=== PATIENT | female | born 1950 | race Two or more races ===

== ENCOUNTER 2024-06-11 16:32 | Inpatient (IN) | payer OTHER ==
[~2024-06-11] VITALS: Ht 152.4 cm; Wt 72.6 kg
--- NOTE | 2024-06-11 16:45 | NUR ---
PTE ALERTA Y POCO COOPERADO AL HABLAR EN COMPANIA DE FAMILIAR QUIEN REFIERE TRAER A PTE YA QUE LA MISMA LLEVA 4 STEVENS SIN COMER Y ESTA REFEIRE PTE VERBALIZAR DOLOR DE PECHO EN EL CARMEN DE HOY. DXT EN 89 Y SE REALIZA EKG. PTE DE GRACIE CARDENAS
[2024-06-11] MEDS ORDERED: LANTUS SOL100 UNIT/1 SUBCUTANEO (16:47)
[2024-06-11] MEDS ORDERED: HUMALOG100 UNIT/2 SUBCUTANEO (16:47)
[2024-06-11] MEDS ORDERED: CARDURA1 MG PO (16:47)
[2024-06-11] MEDS ORDERED: LIPITOR40 M1 PO (16:48)
[2024-06-11] MEDS ORDERED: 0.9 % SODIUM CHLORIDE 500 ML IV ONE (19:30)
--- NOTE | 2024-06-11 20:32 | NUR ---
SE EDUCA A PTE Y FAMILIAR SOBRE TX MEDICO. SE MATT MUESTRAS DE LABORATORIO UTILIZANDO MEDIDAS ASEPTICAS. SE COLOCA H/L ERIC DE EDEMA. SE COLOCA IV FLUIDS GUILLERMO ORDEN MEDICA.
[2024-06-11 20:36] LABS: HEMATOCRIT 44.1 % (36.0-45.00); HEMOGLOBIN 14.2 g/dL (12.0-15.00); MEAN CELL VOLUME 88.4 fL (80.00-100.00); MEAN CORPUSCULAR HEMOGLOBIN 28.4 pg (27.00-32.0); MEAN CORPUSCULAR HGB CONC 32.1 g/dl (32.0-36.0); PLATELET COUNT 322 K/uL (150-450); RED BLOOD COUNT 4.99 M/uL (4.00-6.00); RED CELL DISTRIBUTION WIDTH 13.3 % (11.5-14.5)
[2024-06-11 21:24] LABS: ALBUMIN 3.5 gm/dL (3.4-5.0); BILIRUBIN TOTAL 0.6 mg/dL (0.3-1.2); CALCIUM 10.1 mg/dL (8.5-10.1); CREATININE SERUM 2.6 mg/dL (0.55-1.02); GFR 18.09; GLOBULINA 5.8 G/DL (2.4-3.5); POTASSIUM 4.61 mEq/L (3.5-5.1); TOTAL PROTEIN 9.3 gm/dL (6.4-8.2)
--- NOTE | 2024-06-11 22:32 | NUR ---
SE CATETERIZA A PTE UTILIZANDO MEDIDAS ASEPTICAS Y ESTERILES. SE DESTINEE MUESTRA DE UA Y UC. SE NOTIFICA ESTUDIO DE RX PENDIENTE.
[2024-06-11] MEDS ORDERED: DOXAZOSIN MESYLATE 2 MG TABLET PO SCH (22:59)
[2024-06-11] MEDS ORDERED: INSULIN LISPRO 1,000 UNIT/10 ML UNITS SUBCUTANEO PRN (23:00)
[2024-06-11] MEDS ORDERED: DEXTROSE 50 % IN WATER 0.5 G/ML DISP.SYRIN IV PRN (23:00)
[2024-06-11] MEDS ORDERED: ONDANSETRON HCL 4 MG in 0.9 % SODIUM CHLORIDE 50 ML IV PRN (23:00)
[2024-06-11] MEDS ORDERED: 0.9 % SODIUM CHLORIDE 1,000 ML IV SCH (23:00)
[2024-06-11] MEDS ORDERED: hydrALAZINE HCL 20 MG VIAL IV PRN (23:00)
[2024-06-11 23:47] LABS: URINE APPEARANCE Turbid; URINE BILIRRUBIN Negative (NEGATIVE); URINE BLOOD Large; URINE COLOR Yellow; URINE GLUCOSE Negative (NEGATIVE); URINE KETONE Trace (NEGATIVE); URINE LEUKOCYTE Large; URINE NITRATE Negative
[2024-06-11 23:51] LABS: URINE EPITHELIAL CELLS 95.2 uL (0.0-38.8)
[2024-06-12 00:39] LABS: URINE BACTERIA > 9821.5 uL (0.0-1933); URINE CAST > 21.83 uL (0.0-1.40); URINE PROTEIN 300 (NEGATIVE); URINE WBC > 5548.3 uL (0.0-23.2)
[2024-06-12 01:48] LABS: INR 1.06; PROTHROMBIN TIME 11.5 SECONDS (9.0-11.5)
[2024-06-12 03:30] VITALS: BP 165/80
[2024-06-12] MEDS ORDERED: FAMOTIDINE/PF 20 MG in 0.9 % SODIUM CHLORIDE 8 ML IV PUSH SCH (09:00)
[2024-06-12] MEDS ORDERED: ATORVASTATIN CALCIUM 40 MG TABLET PO SCH (09:00)
[2024-06-12 10:54] VITALS: BP 149/76; O2SAT 99
[2024-06-12 16:58] VITALS: BP 160/93
[2024-06-12] MEDS ORDERED: CEFTRIAXONE SODIUM 2,000 MG in DEXTROSE 5 % IN WATER 100 ML IV SCH (18:14)
[2024-06-12] MEDS ORDERED: VITAMIN B COMPLEX/LYSINE 15 ML BLIST.PACK PO SCH (18:16)
[2024-06-13 02:58] VITALS: BP 153/90; O2SAT 95
[2024-06-13 06:49] LABS: HEMATOCRIT 40.2 % (36.0-45.00); HEMOGLOBIN 13.5 g/dL (12.0-15.00); MEAN CELL VOLUME 86.4 fL (80.00-100.00); MEAN CORPUSCULAR HEMOGLOBIN 28.9 pg (27.00-32.0); MEAN CORPUSCULAR HGB CONC 33.5 g/dl (32.0-36.0); PLATELET COUNT 288 K/uL (150-450); RED BLOOD COUNT 4.66 M/uL (4.00-6.00); RED CELL DISTRIBUTION WIDTH 13.5 % (11.5-14.5)
[2024-06-13 08:00] VITALS: BP 137/80
[2024-06-13 08:06] LABS: ALBUMIN 3.2 gm/dL (3.4-5.0); BILIRUBIN TOTAL 0.38 mg/dL (0.3-1.2); CALCIUM 9.5 mg/dL (8.5-10.1); CREATININE SERUM 2.21 mg/dL (0.55-1.02); GFR 21.83; GLOBULINA 4.4 G/DL (2.4-3.5); POTASSIUM 4.18 mEq/L (3.5-5.1); TOTAL PROTEIN 7.6 gm/dL (6.4-8.2)
[2024-06-13 16:50] VITALS: BP 150/75
[2024-06-13] MEDS ORDERED: FLUCONAZOLE 200 MG TABLET PO SCH (17:00)
[2024-06-14 02:00] VITALS: BP 146/86; O2SAT 97
[2024-06-14 08:00] VITALS: BP 160/94; O2SAT 95
[2024-06-14 17:16] VITALS: BP 163/85
[2024-06-15 01:35] VITALS: BP 160/85; O2SAT 97
[2024-06-15 08:39] VITALS: BP 154/84; O2SAT 100
[2024-06-15 17:59] VITALS: BP 159/69
[2024-06-15 18:31] VITALS: BP 183/89
[2024-06-15 20:36] LABS: PH,URINE 6.5 (5.0-8.0); URINE APPEARANCE Turbid; URINE BILIRRUBIN Negative (NEGATIVE); URINE BLOOD Small; URINE COLOR Yellow; URINE KETONE Negative (NEGATIVE); URINE LEUKOCYTE Large; URINE NITRATE Negative; URINE UROBILINOGEN 0.2 E.U./dl
[2024-06-15 20:40] LABS: URINE BACTERIA 6816.1 uL (0.0-1933); URINE CAST 1.76 uL (0.0-1.40); URINE EPITHELIAL CELLS 15.8 uL (0.0-38.8); URINE RBC 21.2 uL (0.0-20.8); URINE WBC 4257.8 uL (0.0-23.2)
[2024-06-15 21:11] LABS: URINE GLUCOSE 500 MG/DL (NEGATIVE); URINE PROTEIN 300 (NEGATIVE)
[2024-06-15 21:12] LABS: URINE YEAST MANY /hpf
[2024-06-16 00:52] VITALS: BP 160/89
[2024-06-16 06:15] LABS: HEMATOCRIT 33.6 % (36.0-45.00); HEMOGLOBIN 11.3 g/dL (12.0-15.00); MEAN CELL VOLUME 85.4 fL (80.00-100.00); MEAN CORPUSCULAR HEMOGLOBIN 28.7 pg (27.00-32.0); MEAN CORPUSCULAR HGB CONC 33.6 g/dl (32.0-36.0); PLATELET COUNT 230 K/uL (150-450); RED BLOOD COUNT 3.93 M/uL (4.00-6.00); RED CELL DISTRIBUTION WIDTH 13.1 % (11.5-14.5)
[2024-06-16 06:45] LABS: ALBUMIN 2.8 gm/dL (3.4-5.0); BILIRUBIN TOTAL 0.22 mg/dL (0.3-1.2); CALCIUM 8.5 mg/dL (8.5-10.1); CREATININE SERUM 1.81 mg/dL (0.55-1.02); GFR 27.48; GLOBULINA 3.6 G/DL (2.4-3.5); MAGNESIUM 1.7 mg/dL (1.8-2.4); PHOSPHOROUS 2.6 mg/dL (2.5-4.9); POTASSIUM 4.6 mEq/L (3.5-5.1); TOTAL PROTEIN 6.4 gm/dL (6.4-8.2)
[2024-06-16 08:51] VITALS: BP 170/81
[2024-06-16] MEDS ORDERED: FAMOtidine 20 MG TABLET PO SCH (09:00)
[2024-06-16] MEDS ORDERED: NIFEDIPINE 30 MG TAB.SA.OSM PO STA (14:13)
[2024-06-16 16:00] VITALS: BP 154/77
[2024-06-17 00:44] VITALS: BP 107/75
[2024-06-17 08:56] VITALS: BP 147/70
[2024-06-17] MEDS ORDERED: NIFEDIPINE 30 MG TAB.SA.OSM PO SCH (09:00)
[2024-06-17 17:45] VITALS: BP 143/77
[2024-06-18 01:19] VITALS: BP 115/63
[2024-06-18 08:04] VITALS: BP 100/57
[2024-06-18] MEDS ORDERED: INSULIN GLARGINE,HUM.REC.ANLOG 1,000 UNITS/10 ML UNITS SUBCUTANEO SCH (17:00)
[2024-06-18 17:04] VITALS: BP 158/67
[2024-06-19 01:30] VITALS: BP 141/61
[2024-06-19 04:50] LABS: HEMATOCRIT 29.7 % (36.0-45.00); MEAN CELL VOLUME 85.8 fL (80.00-100.00); MEAN CORPUSCULAR HEMOGLOBIN 28.7 pg (27.00-32.0); MEAN CORPUSCULAR HGB CONC 33.5 g/dl (32.0-36.0); PLATELET COUNT 206 K/uL (150-450); RED BLOOD COUNT 3.46 M/uL (4.00-6.00); RED CELL DISTRIBUTION WIDTH 13.4 % (11.5-14.5)
[2024-06-19 05:15] LABS: ALBUMIN 2.5 gm/dL (3.4-5.0); BILIRUBIN TOTAL 0.26 mg/dL (0.3-1.2); CALCIUM 8.6 mg/dL (8.5-10.1); CREATININE SERUM 1.75 mg/dL (0.55-1.02); GFR 28.57; GLOBULINA 3.4 G/DL (2.4-3.5); MAGNESIUM 1.6 mg/dL (1.8-2.4); PHOSPHOROUS 2.9 mg/dL (2.5-4.9); POTASSIUM 4.35 mEq/L (3.5-5.1); TOTAL PROTEIN 5.9 gm/dL (6.4-8.2)
[2024-06-19 08:09] VITALS: BP 123/67
[2024-06-19 16:03] VITALS: BP 120/64
[2024-06-20 02:41] VITALS: BP 121/69; O2SAT 95
[2024-06-20] MEDS ORDERED: INSULIN LISPRO 1,000 UNIT/10 ML UNITS SUBCUTANEO STA (08:01)
[2024-06-20 08:59] VITALS: BP 123/68; O2SAT 97
[2024-06-20] MEDS ORDERED: INSULIN LISPRO 1,000 UNIT/10 ML UNITS SUBCUTANEO SCH (12:00)
[2024-06-20 16:00] VITALS: BP 150/70; O2SAT 97
== END 2024-06-20 17:52 | disposition home or self-care (01) | DRG 641 ==
LOC: ER 16:33 → SEC-K 23:05 → MEDJ 23:05 → MEDI 06-14 20:30
PROVIDERS: General Practice; Internal Medicine; Internal Medicine Nephrology; Preventive Medicine Public Health & General Preventive Medicine; ADMIT Internal Medicine; ATTEND Internal Medicine
PROC: BW21ZZZ Computerized Tomography (CT Scan) of Abdomen and Pelvis (ICD-10-PCS; principal; 2024-06-11)
PROC: BW40ZZZ Ultrasonography of Abdomen (ICD-10-PCS; 2024-06-13)
DX: R63.0 Anorexia (principal); N17.9 Acute kidney failure, unspecified; N39.0 Urinary tract infection, site not specified; I10 Essential (primary) hypertension; E11.9 Type 2 diabetes mellitus without complications; Z79.4 Long term (current) use of insulin; G30.9 Alzheimer's disease, unspecified; F02.80 Dementia in other diseases classified elsewhere, unspecified severity, without behavioral disturbance, psychotic disturbance, mood disturbance, and anxiety; K81.9 Cholecystitis, unspecified